=== PATIENT | female | born 1970 | race Caucasian/White ===

== ENCOUNTER 2016-07-31 18:37 | Emergency (ER) | payer MEDICAID ==
[~2016-07-31] VITALS: Ht 162.6 cm; Wt 84.0 kg
[~2016-07-31 18:37] MED LIST: ALPR0.5T3 PO; OMEP20TA PO; VENL37.595 PO; ZOLP10TA3 PO
[2016-07-31 18:39] VITALS: BP 125/86; PULSE 124; RESP 20; TEMP 97.5; O2SAT 98
[2016-07-31] MEDS ORDERED: DULO20 PO (18:47)
[2016-07-31] MEDS ORDERED: NEUR300C PO (19:19)
[2016-07-31] MEDS ORDERED: ACYC800T PO (19:19)
--- NOTE | 2016-07-31 19:23 | PD ---
HPI Chief Complaint: Skin Problem Time Seen by Provider: 19:19 Travel History International Travel<30 days: No Contact w/Intl Traveler<30days: No Traveled to known affect area: No History of Present Illness HPI 45-YEAR-OLD WHITE FEMALE PRESENTS TO EMERGENCY DEPARTMENT WITH A 2 DAY HISTORY OF blistering rash to the back of her right thigh. She has never had a rash at this time. She states that she has associated pain with this. She states it is a burning. She does not recall being sick prior to this. She does have some headache and general malaise. She denies any numbness, tingling or wheeze. No nausea vomiting. No history of shingles or herpes in the past. PFSH Past Medical History Narrative Medical Anxiety, depression, GERD, insomnia Arthritis: Yes Blood Disorders: No Anxiety: Yes Depression: Yes Cancer: No Cardiovascular Problems: No Diminished Hearing: No Gastrointestinal Disorders: No GERD: Yes Genitourinary: No Hepatitis: No Hiatal Hernia: No Hypertension: No Immune Disorder: No Implanted Vascular Access Dvce: No Insomnia: Yes Musculoskeletal: No Neurologic: Yes (HX MIGRAINES, HX 2 SEIZURES UNKNOWN ORIGIN 5 YR AGO) Psychiatric: Yes (HX OF PANIC ATTACKS) Reproductive: No Respiratory: No Seizures: Yes Thyroid Disease: Yes (HX OF HYPOTHYROID) Tetanus Vaccination: > 5 Years Influenza Vaccination: No ?: Not Ovarian Cysts: Yes (hx surgical removal) Tubal Ligation: Yes Past Surgical History Narrative Surgical Laparoscopic cyst removal from the ovary, C-sections 2, hysterectomy, right shoulder decompression Abdominal Surgery: No Body Medical Devices: NONE Cardiac Surgery: No Section: Yes Ear Surgery: No Endocrine Surgery: No Eye Surgery: No Genitourinary Surgery: No Gynecologic Surgery: Yes (2 C SECTION, TL, REMOVAL GROWTH FROM OVARY ) Hysterectomy: Yes (PARTIAL) Neurologic Surgery: No Oral Surgery: No Thoracic Surgery: No Other Surgery: Yes Social History Alcohol Use: Yes (COUPLE TIMES PER MONTH) Tobacco Use: No Substance Use: No Allergies-Medications (Allergen,Severity, Reaction): Coded Allergies: No Known Allergies (Verified , 07/31/16) Reported Meds & Prescriptions Reported Meds & Active Scripts Active Reported Cymbalta DR (Duloxetine HCl) 20 Mg Capdr 20 Mg PO DAILY Zolpidem (Zolpidem Tartrate) 10 Mg Tab 10 Mg PO HS PRN Alprazolam 0.5 Mg Tab 0.5 Mg PO Q8H PRN Omeprazole 20 Mg Tab 20 Mg PO DAILY Review of Systems Except as stated in HPI: all other systems reviewed are Neg Physical Exam Narrative GENERAL: Well-developed, well-nourished in no acute distress. Nontoxic appearing. The patient is examined with the female tech present HEAD: Normocephalic, atraumatic. EYES: Pupils equal round and reactive. Extraocular motions intact. No scleral icterus. No injection or drainage. ENT: TMs clear without erythema. The external auditory canals clear. Nose: clear . Posterior pharynx is pink and moist. No tonsillar edema or exudate. Uvula midline. Airway patent. NECK: Trachea midline.Supple, nontender, moves head freely. No central bony tenderness or spasm. CARDIOVASCULAR: Regular rate and rhythm without murmurs, gallops, or rubs. RESPIRATORY: Clear to auscultation. Breath sounds equal bilaterally. No wheezes , rales, or rhonchi. GASTROINTESTINAL: Abdomen soft, non-tender, nondistended. No hepato-splenomegaly , or palpable masses. No guarding. EXTREMITIES: No clubbing, cyanosis, or edema. No joint tenderness, effusion, or edema noted. BACK: Nontender without deformity or crepitance. No flank tenderness. Skin: Patient has a dermatomal vesicular rash to the posterior aspect of the right thigh from the buttocks down posteriorly to the knee. This is in a clustered group of vesicles which are intact. No surrounding infection. Data Data Last Documented VS Vital Signs Date Time Temp Pulse Resp B/P Pulse Ox O2 Delivery O2 Flow Rate FiO2 07/31/16 18:39 97.5 124 20 125/86 98 Room Air MDM Medical Decision Making Medical Screen Exam Complete: Yes Emergency Medical Condition: Yes Medical Record Reviewed: Yes Differential Diagnosis MDM: High Differential diagnoses: Abscess, folliculitis, cellulitis, lymphangitis, abrasion, contact dermatitis, herpes zoster Narrative Course This is herpes zoster Diagnosis Primary Impression: Herpes zoster Qualified Code: B02.8 - Herpes zoster with other complication Patient Instructions: General Instructions Departure Forms: Tests/Procedures, Work Release Special Instructions: No work 3 days. Additional Instructions: Rest. Elevation. keep clean and dry. Calamine lotion. Daily wound care with soap, water. Three Advil every 6 hours. Neurontin and acyclovir. Follow-up with a primary care doctor in one week. Return to the ER for any problems. Med/Other Pt SpecificInfo: Prescription(s) given Scripts Gabapentin (Neurontin)300 Mg Tao157 Mg PO TID #30 CAP Ref 0 Prov:Marty Ashraf MD 07/31/16 Acyclovir 800 Mg Qtd952 Mg PO 5 TIMES A DAY 10 Days Ref 0 Prov:Marty Ashraf MD 07/31/16 Disposition: 01 DISCHARGE HOME Condition: Stable Vinay Fong July 31, 2016 19:23
== END 2016-07-31 19:31 | disposition home or self-care (01) ==
LOC: NEPK 18:37
DX: B02.9 Zoster without complications (principal)
CPT/HCPCS: 99284

== ENCOUNTER 2016-09-12 09:32 | Emergency (ER) | payer MEDICAID ==
[~2016-09-12 09:32] MED LIST changes: +ACYC800T PO; +DULO20 PO; +NEUR300C PO; -VENL37.595 PO
[2016-09-12 09:36] VITALS: BP 160/95; PULSE 140; RESP 26; TEMP 97.8; O2SAT 100
[2016-09-12] MEDS ORDERED: ALPR1TAB3 PO (09:57)
[2016-09-12] MEDS ORDERED: CYMB60CA PO (09:57)
--- NOTE | 2016-09-12 10:13 | PD ---
HPI Chief Complaint: Respiratory Symptoms Time Seen by Provider: 09:58 Travel History International Travel<30 days: No Contact w/Intl Traveler<30days: No Traveled to known affect area: No History of Present Illness HPI The patient was seen and examined in the presence of the nurse. Patient complains of anxiety and panic. She is short of breath. She is hyperventilating and tearful. She is not having any chest pain. Severity is moderate. No alleviating factors. She reports compliance with her psychiatric medications. Duration one day. PFSH Past Medical History Arthritis: Yes Blood Disorders: No Anxiety: Yes Depression: Yes Cancer: No Cardiovascular Problems: No Diminished Hearing: No Gastrointestinal Disorders: No GERD: Yes Genitourinary: No Hepatitis: No Hiatal Hernia: No Hypertension: No Immune Disorder: No Implanted Vascular Access Dvce: No Insomnia: Yes Musculoskeletal: No Neurologic: Yes (HX MIGRAINES, HX 2 SEIZURES UNKNOWN ORIGIN 5 YR AGO) Psychiatric: Yes (HX OF PANIC ATTACKS) Reproductive: No Respiratory: No Seizures: Yes Thyroid Disease: Yes (HX OF HYPOTHYROID) ?: Not Ovarian Cysts: Yes (hx surgical removal) Tubal Ligation: Yes Past Surgical History Abdominal Surgery: No Body Medical Devices: NONE Cardiac Surgery: No Section: Yes Ear Surgery: No Endocrine Surgery: No Eye Surgery: No Genitourinary Surgery: No Gynecologic Surgery: Yes (2 C SECTION, TL, REMOVAL GROWTH FROM OVARY ) Hysterectomy: Yes (PARTIAL HYSTERECTOMY) Neurologic Surgery: No Oral Surgery: No Thoracic Surgery: No Other Surgery: Yes Social History Alcohol Use: Yes (COUPLE TIMES PER MONTH) Tobacco Use: No Substance Use: No Allergies-Medications (Allergen,Severity, Reaction): Coded Allergies: No Known Allergies (Verified , 09/12/16) Reported Meds & Prescriptions Reported Meds & Active Scripts Active Neurontin (Gabapentin) 300 Mg Cap 300 Mg PO TID Reported Cymbalta DR (Duloxetine HCl) 60 Mg Capdr 90 Mg PO DAILY Alprazolam 1 Mg Tab 1 Mg PO Q8H PRN Zolpidem (Zolpidem Tartrate) 10 Mg Tab 10 Mg PO HS PRN Omeprazole 20 Mg Tab 20 Mg PO DAILY Review of Systems General / Constitutional: No: Fever Eyes: No: Visual changes HENT: No: Headaches Cardiovascular: Positive: Tachycardia, No: Chest Pain or Discomfort Respiratory: Positive: Shortness of Breath Gastrointestinal: No: Abdominal Pain Genitourinary: No: Dysuria Musculoskeletal: No: Pain Skin: No Rash Neurologic: No: Weakness Psychiatric: Positive: Anxiety, No: Depression Endocrine: No: Polydipsia Hematologic/Lymphatic: No: Easy Bruising Physical Exam Narrative GENERAL: Well-nourished, well-developed patient who is hyperventilating and panicky and tearful . SKIN: Focused skin assessment reveals no rash and nodules. Skin is Warm and dry. HEAD: Atraumatic. Normocephalic. EYES: Pupils equal and round. No scleral icterus. No injection or drainage. ENT: No nasal bleeding or discharge. Mucous membranes pink and moist. NECK: Trachea midline. No JVD. CARDIOVASCULAR: Regular rate and rhythm. No murmur appreciated. RESPIRATORY: No accessory muscle use. Clear to auscultation. Breath sounds equal bilaterally. GASTROINTESTINAL: Abdomen soft, non-tender, nondistended. Hepatic and splenic margins not palpable. MUSCULOSKELETAL: No obvious deformities. No clubbing. No cyanosis. No edema. NEUROLOGICAL: Awake and alert. No obvious cranial nerve deficits. Motor grossly within normal limits. Normal speech. PSYCHIATRIC: Anxious mood and affect; insight and judgment normal. Data Data Last Documented VS Vital Signs Date Time Temp Pulse Resp B/P Pulse Ox O2 Delivery O2 Flow Rate FiO2 09/12/16 11:02 84 17 117/78 97 Room Air 09/12/16 09:36 97.8 Orders Iv Access Insert/Monitor (09/12/16 10:05) Complete Blood Count With Diff (09/12/16 10:05) Basic Metabolic Panel (Bmp) (09/12/16 10:05) Chest, Single Ap (09/12/16 ) Conductor Orchestra / Telemetry PRERNA.Q8H (09/12/16 10:05) Lorazepam Inj (Ativan Inj) (09/12/16 10:15) Labs Laboratory Tests Test 09/12/16 09:55 White Blood Count 11.7 TH/MM3 Red Blood Count 4.44 MIL/MM3 Hemoglobin 12.3 GM/DL Hematocrit 37.5 % Mean Corpuscular Volume 84.4 FL Mean Corpuscular Hemoglobin 27.6 PG Mean Corpuscular Hemoglobin 32.7 % Concent Red Cell Distribution Width 17.5 % Platelet Count 283 TH/MM3 Mean Platelet Volume 9.1 FL Neutrophils (%) (Auto) 77.7 % Lymphocytes (%) (Auto) 13.1 % Monocytes (%) (Auto) 7.8 % Eosinophils (%) (Auto) 1.1 % Basophils (%) (Auto) 0.3 % Neutrophils # (Auto) 9.1 TH/MM3 Lymphocytes # (Auto) 1.5 TH/MM3 Monocytes # (Auto) 0.9 TH/MM3 Eosinophils # (Auto) 0.1 TH/MM3 Basophils # (Auto) 0.0 TH/MM3 CBC Comment DIFF FINAL Differential Comment Sodium Level 138 MEQ/L Potassium Level 3.7 MEQ/L Chloride Level 105 MEQ/L Carbon Dioxide Level 27.2 MEQ/L Anion Gap 6 MEQ/L Blood Urea Nitrogen 10 MG/DL Creatinine 0.76 MG/DL Estimat Glomerular Filtration 83 ML/MIN Rate Random Glucose 106 MG/DL Calcium Level 8.4 MG/DL MDM Medical Decision Making Medical Screen Exam Complete: Yes Emergency Medical Condition: Yes Medical Record Reviewed: Yes Differential Diagnosis Anxiety, panic, pneumonia, pneumothorax Narrative Course I have reviewed the patient's electronic medical record. IV placed CBC is normal Metabolic profile normal I reviewed her chest x-ray which is normal I gave her 1 mg IV Ativan On recheck she feels much better and is calm and she is no longer tachycardic Diagnosis Primary Impression: Shortness of breath at rest Additional Impression: Panic attack Additional Instructions: The patient was advised to follow up with their physician and return if they worsen. Med/Other Pt SpecificInfo: Other Disposition: 01 DISCHARGE HOME Condition: Stable Frandy Hines MD Sep 12, 2016 10:13
[2016-09-12] MEDS ORDERED: LORazepam 2 MG/ML VIAL IV PUSH ONE (10:15)
[2016-09-12 10:25] LABS: AUTOMATED NEUTROPHIL # 9.1 TH/MM3 (1.8-7.7); BASOPHIL % 0.3 % (0.0-2.0); EOSINOPHIL # 0.1 TH/MM3 (0-0.4); EOSINOPHIL % 1.1 % (0.0-4.0); HEMATOCRIT 37.5 % (35.0-46.0); HEMO FLAGS DIFF FINAL; LYMPH % 13.1 % (9.0-44.0); LYMPHOCYTE # 1.5 TH/MM3 (1.0-4.8); MEAN CELL VOLUME 84.4 FL (80.0-100.0); MEAN CORPUSCULAR HEMOGLOBIN 27.6 PG (27.0-34.0); MEAN CORPUSCULAR HGB CONC 32.7 % (32.0-36.0); MONO % 7.8 % (0.0-8.0); NEUT % 77.7 % (16.0-70.0); PLATELET COUNT 283 TH/MM3 (150-450); RED BLOOD COUNT 4.44 MIL/MM3 (4.00-5.30); RED CELL DISTRIBUTION WIDTH 17.5 % (11.6-17.2); WHITE BLOOD COUNT 11.7 TH/MM3 (4.0-11.0)
[2016-09-12 10:41] LABS: BICARBONATE 27.2 MEQ/L (21.0-32.0); POTASSIUM 3.7 MEQ/L (3.5-5.1)
--- NOTE | 2016-09-12 10:42 | RADRPT ---
EXAM DATE/TIME: 09/12/2016 10:20 [facility] COMPARISON: No previous studies available for comparison. INDICATIONS : Short of breath. Elevated heart rate. Possible anxiety attack. MEDICAL HISTORY : Hypothyroidism. Gastroesophageal reflux disease. Arthritis. Migraines. Seizures. Constipation. Ov octavia cyst. Panic attacks. SURGICAL HISTORY : section. Tubal ligation. Hysterectomy. Ovarian cyst removal. Right shoulder surgery. ENCOUNTER: Initial ACUITY: 1 day PAIN SCORE: 0/10 LOCATION: Bilateral chest FINDINGS: The lungs are clear without infiltrate, nodule, or mass. There is no appreciable pleural effusion fo r technique. Heart and mediastinum are unremarkable. CONCLUSION: No acute cardiopulmonary disease. Guillermina Shaw MD on September 12, 2016 at 10:39 Board Certified Radiologist. This report was verified electronically.
[2016-09-12 11:02] VITALS: BP 117/78; PULSE 84; RESP 17; O2SAT 97
== END 2016-09-12 13:45 | disposition home or self-care (01) ==
LOC: NEPE 09:32
DX: F41.0 Panic disorder [episodic paroxysmal anxiety] (principal)
CPT/HCPCS: 71010; 80048; 85025; 96374; 99284; J2060

== ENCOUNTER 2016-10-09 10:09 | Emergency (ER) | payer OTHER, MEDICAID ==
[~2016-10-09] VITALS: Ht 162.6 cm; Wt 85.0 kg
[~2016-10-09 10:09] MED LIST changes: -ACYC800T PO; -ALPR0.5T3 PO; +ALPR1TAB3 PO; +CYMB60CA PO; -DULO20 PO
[2016-10-09 10:12] VITALS: BP 132/92; PULSE 131; RESP 22; TEMP 98.4
[2016-10-09] MEDS ORDERED: LORazepam 2 MG/ML VIAL IV PUSH ONE (10:30)
[2016-10-09 10:35] VITALS: PULSE 108; RESP 18; O2SAT 99
[2016-10-09 11:12] LABS: AUTOMATED NEUTROPHIL # 5.3 TH/MM3 (1.8-7.7); BASOPHIL % 0.5 % (0.0-2.0); EOSINOPHIL # 0.1 TH/MM3 (0-0.4); EOSINOPHIL % 1.4 % (0.0-4.0); HEMATOCRIT 35.2 % (35.0-46.0); HEMO FLAGS DIFF FINAL; LYMPHOCYTE # 1.3 TH/MM3 (1.0-4.8); MEAN CELL VOLUME 86.6 FL (80.0-100.0); MEAN CORPUSCULAR HEMOGLOBIN 28.3 PG (27.0-34.0); MEAN CORPUSCULAR HGB CONC 32.7 % (32.0-36.0); MONO % 8.4 % (0.0-8.0); NEUT % 71.7 % (16.0-70.0); PLATELET COUNT 296 TH/MM3 (150-450); RED BLOOD COUNT 4.06 MIL/MM3 (4.00-5.30); RED CELL DISTRIBUTION WIDTH 16.4 % (11.6-17.2); WHITE BLOOD COUNT 7.4 TH/MM3 (4.0-11.0)
--- NOTE | 2016-10-09 11:17 | RADRPT ---
EXAM DATE/TIME: 10/09/2016 10:33 [facility] COMPARISON: CHEST SINGLE AP, September 12, 2016, 10:20. INDICATIONS : Short of breath since this morning when patient woke up. MEDICAL HISTORY : None. SURGICAL HISTORY : section. Ovarian cyst removed. ENCOUNTER: Initial ACUITY: 1 day PAIN SCORE: 0/10 LOCATION: Bilateral chest FINDINGS: There is minimal sub-segmental level atelectasis in the left midlung. Lungs otherwise clear. No effus ion suspected. Cardiac contours are satisfactory. CONCLUSION: Minimal left lung atelectasis Flex Blevins MD on October 09, 2016 at 11:15 Board Certified Radiologist. This report was verified electronically.
--- NOTE | 2016-10-09 11:29 | PD ---
HPI Chief Complaint: Anxiety Time Seen by Provider: 10:25 Travel History International Travel<30 days: No Contact w/Intl Traveler<30days: No Traveled to known affect area: No History of Present Illness HPI This is a 45-year-old female with no significant past medical history, who presents today with complaints of shortness of breath, shakiness, palpitations. The patient states that she was on her way to work when she started feeling anxious. She states she's allow life stressors including work. She was seen here previously for similar episode and was told it was likely anxiety. She has no history of estrogen use, she is not a smoker, she has had no long car or plane rides, she has no calf tenderness or swelling. She denies any chest pain , chest pressure. There are no other complaints time my examination. PFSH Past Medical History Arthritis: Yes Blood Disorders: No Anxiety: Yes Depression: Yes Cancer: No Cardiovascular Problems: No Diminished Hearing: No Gastrointestinal Disorders: No GERD: Yes Genitourinary: No Hepatitis: No Hiatal Hernia: No Hypertension: No Immune Disorder: No Implanted Vascular Access Dvce: No Insomnia: Yes Musculoskeletal: No Neurologic: Yes (HX MIGRAINES, HX 2 SEIZURES UNKNOWN ORIGIN 5 YR AGO) Psychiatric: Yes (HX OF PANIC ATTACKS) Reproductive: No Respiratory: No Seizures: Yes Thyroid Disease: Yes (HX OF HYPOTHYROID) Tetanus Vaccination: > 5 Years Influenza Vaccination: Yes ?: Not Ovarian Cysts: Yes (hx surgical removal) Tubal Ligation: Yes Past Surgical History Abdominal Surgery: No Body Medical Devices: NONE Cardiac Surgery: No Section: Yes Ear Surgery: No Endocrine Surgery: No Eye Surgery: No Genitourinary Surgery: No Gynecologic Surgery: Yes (2 C SECTION, TL, REMOVAL GROWTH FROM OVARY ) Hysterectomy: Yes (PARTIAL HYSTERECTOMY) Neurologic Surgery: No Oral Surgery: No Thoracic Surgery: No Other Surgery: Yes Social History Alcohol Use: Yes (COUPLE TIMES PER MONTH) Tobacco Use: No (quit 20 years ago) Substance Use: No (pt denies ) Allergies-Medications (Allergen,Severity, Reaction): Coded Allergies: No Known Allergies (Verified , 10/09/16) Reported Meds & Prescriptions Reported Meds & Active Scripts Active Vistaril (Hydroxyzine Pamoate) 25 Mg Cap 25 Mg PO TID PRN Neurontin (Gabapentin) 300 Mg Cap 300 Mg PO TID Reported Cymbalta DR (Duloxetine HCl) 60 Mg Capdr 90 Mg PO DAILY Alprazolam 1 Mg Tab 1 Mg PO Q8H PRN Zolpidem (Zolpidem Tartrate) 10 Mg Tab 10 Mg PO HS PRN Omeprazole 20 Mg Tab 20 Mg PO DAILY Review of Systems Except as stated in HPI: all other systems reviewed are Neg General / Constitutional: No: Fever, Chills HENT: No: Headaches, Lightheadedness Cardiovascular: Positive: Palpitations, No: Chest Pain or Discomfort, Irregular Rhythm Respiratory: Positive: Shortness of Breath, No: Cough Gastrointestinal: No: Nausea, Vomiting, Abdominal Pain Genitourinary: No: Frequency, Dysuria Musculoskeletal: No: Weakness, Edema, Pain Neurologic: Positive: Other, No: Weakness, Dizziness, Headache (shakiness), Incontinence Psychiatric: Positive: Anxiety, No: Depression, Suicidal Ideations, Disorder of Thought Physical Exam Narrative GENERAL: Well-developed well-nourished female in no acute respiratory distress. She appeared anxious and jittery when I entered the room. SKIN: Focused skin assessment warm/dry. HEAD: Atraumatic. Normocephalic. EYES: No scleral icterus. No injection or drainage. ENT: No nasal bleeding or discharge. Mucous membranes pink and moist. NECK: Trachea midline. No JVD. Supple. CARDIOVASCULAR: Tachycardic without murmurs. Rate was 105. No murmur appreciated. RESPIRATORY: No accessory muscle use. Clear to auscultation. Breath sounds equal bilaterally. GASTROINTESTINAL: Abdomen soft, non-tender, nondistended. Hepatic and splenic margins not palpable. MUSCULOSKELETAL: No obvious deformities. No clubbing. No cyanosis. No edema. NEUROLOGICAL: Awake and alert. No obvious cranial nerve deficits. Motor grossly within normal limits. Normal speech. PSYCHIATRIC: Anxious appearing. Data Data Last Documented VS Vital Signs Date Time Temp Pulse Resp B/P Pulse Ox O2 Delivery O2 Flow Rate FiO2 10/09/16 13:58 97.9 93 16 108/60 99 Room Air Orders Electrocardiogram (10/09/16 10:30) Complete Blood Count With Diff (10/09/16 10:30) Basic Metabolic Panel (Bmp) (10/09/16 10:30) Chest, Single Ap (10/09/16 10:30) Iv Access Insert/Monitor (10/09/16 10:30) Ecg Monitoring (10/09/16 10:30) Oximetry (10/09/16 10:30) Ed Urine Pregnancytest Poc (10/09/16 10:30) Lorazepam Inj (Ativan Inj) (10/09/16 10:30) Sodium Chlor 0.9% 1000 Ml Inj (Ns 1000 M (10/09/16 13:45) Labs Laboratory Tests Test 10/09/16 10:44 White Blood Count 7.4 TH/MM3 Red Blood Count 4.06 MIL/MM3 Hemoglobin 11.5 GM/DL Hematocrit 35.2 % Mean Corpuscular Volume 86.6 FL Mean Corpuscular Hemoglobin 28.3 PG Mean Corpuscular Hemoglobin 32.7 % Concent Red Cell Distribution Width 16.4 % Platelet Count 296 TH/MM3 Mean Platelet Volume 8.8 FL Neutrophils (%) (Auto) 71.7 % Lymphocytes (%) (Auto) 18.0 % Monocytes (%) (Auto) 8.4 % Eosinophils (%) (Auto) 1.4 % Basophils (%) (Auto) 0.5 % Neutrophils # (Auto) 5.3 TH/MM3 Lymphocytes # (Auto) 1.3 TH/MM3 Monocytes # (Auto) 0.6 TH/MM3 Eosinophils # (Auto) 0.1 TH/MM3 Basophils # (Auto) 0.0 TH/MM3 CBC Comment DIFF FINAL Differential Comment Sodium Level 138 MEQ/L Potassium Level 5.2 MEQ/L Chloride Level 107 MEQ/L Carbon Dioxide Level 24.1 MEQ/L Anion Gap 7 MEQ/L Blood Urea Nitrogen 14 MG/DL Creatinine 0.83 MG/DL Estimat Glomerular Filtration 75 ML/MIN Rate Random Glucose 110 MG/DL Calcium Level 8.1 MG/DL [facility] Medical Decision Making Medical Screen Exam Complete: Yes Emergency Medical Condition: Yes Differential Diagnosis Anxiety versus metabolic derangement versus PE Narrative Course 45-year-old female presents today with complaints of palpitations, shortness of breath, shakiness. The patient was seen a month ago for the same thing. At that time she had another negative workup. Cardiac enzymes and EKG are within normal limits. Her potassium was 5.2. She's been given 1 L of IV fluid. She' ll be discharged and told to follow up with Giuliano Rivas for outpatient counseling. She will be given a prescription for Vistaril. Diagnosis Primary Impression: Shortness of breath at rest Additional Impression: Panic attack Referrals: [facility] Additional Instructions: Drink more water. Follow up with Giuliano Rivas for outpatient counseling. Med/Other Pt SpecificInfo: Prescription(s) given Scripts Hydroxyzine Pamoate (Vistaril)25 Mg Cap25 Mg PO TID PRN (ANXIETY) #30 CAP Ref 0 Prov:Hilario Desai MD 10/09/16 Disposition: 01 DISCHARGE HOME Condition: Stable Hilario Desai MD Oct 09, 2016 11:29
[2016-10-09 11:32] LABS: BICARBONATE 24.1 MEQ/L (21.0-32.0)
[2016-10-09 11:33] LABS: POTASSIUM 5.2 MEQ/L (3.5-5.1)
[2016-10-09 11:49] VITALS: BP 124/83; PULSE 92; RESP 17; TEMP 97.8; O2SAT 98
[2016-10-09] MEDS ORDERED: SODIUM CHLOR 0.9% 1000 ML INJ 1,000 ML IV ONE (13:45)
[2016-10-09 13:58] VITALS: BP 108/60; PULSE 93; RESP 16; TEMP 97.9; O2SAT 99
[2016-10-09] MEDS ORDERED: VIST25CA PO (15:21)
[2016-10-09 15:38] VITALS: BP 110/69; TEMP 97.9
--- NOTE | 2016-10-09 16:30 | EKG ---
Date Performed: 10/09/2016 Time Performed: 10:43:17 PTAGE: 45 years EKG: SINUS TACHYCARDIA ABNORMAL RHYTHM ECG PREVIOUS TRACING : 04/29/2014 11.48 Since previous tracing, no significant change noted DOCTOR: Vitaliy Gomez Interpretating Date/Time 10/09/2016 16:28:53
== END 2016-10-09 15:38 | disposition home or self-care (01) ==
LOC: NEPC 10:09
DX: F41.0 Panic disorder [episodic paroxysmal anxiety] (principal); K21.9 Gastro-esophageal reflux disease without esophagitis; M19.90 Unspecified osteoarthritis, unspecified site
CPT/HCPCS: 71010; 80048; 84703; 85025; 93005; 96361; 96374; 99285; J2060; J7030

== ENCOUNTER 2017-03-12 13:12 | Emergency (ER) | payer MEDICAID, OTHER ==
[~2017-03-12 13:12] MED LIST changes: -OMEP20TA PO; +OMEP20TA93 PO; +VIST25CA PO
[2017-03-12 13:14] VITALS: BP 143/83; PULSE 132; RESP 20; TEMP 97.9; O2SAT 97
--- NOTE | 2017-03-12 14:14 | PD ---
HPI Chief Complaint: Anxiety Time Seen by Provider: 13:35 Travel History International Travel<30 days: No Contact w/Intl Traveler<30days: No Traveled to known affect area: No History of Present Illness HPI Patient is a 46-year-old female presenting to emergency for evaluation of anxiety attacks. Pt presents with palpitations and SOB. Her symptoms Started just prior to arrival. Pt has a hx of anxiety and panic attacks. Patient denies any chest pain, nausea, vomiting, fever, chills, headache. She denies any suicidal ideations, hallucinations. Alleviating or exacerbating factors. Patient denies any recent stressors. Symptoms started abruptly. PFSH Past Medical History Arthritis: Yes Blood Disorders: No Anxiety: Yes Depression: Yes Cancer: No Cardiovascular Problems: No Diminished Hearing: No Gastrointestinal Disorders: No GERD: Yes Genitourinary: No Hepatitis: No Hiatal Hernia: No Hypertension: No Immune Disorder: No Implanted Vascular Access Dvce: No Insomnia: Yes Musculoskeletal: No Neurologic: Yes (HX MIGRAINES, HX 2 SEIZURES UNKNOWN ORIGIN 5 YR AGO) Psychiatric: Yes (HX OF PANIC ATTACKS) Reproductive: No Respiratory: No Seizures: Yes Thyroid Disease: Yes (HX OF HYPOTHYROID) ?: Not Ovarian Cysts: Yes (hx surgical removal) Tubal Ligation: Yes Past Surgical History Abdominal Surgery: No Body Medical Devices: NONE Cardiac Surgery: No Section: Yes Ear Surgery: No Endocrine Surgery: No Eye Surgery: No Genitourinary Surgery: No Gynecologic Surgery: Yes (2 C SECTION, TL, REMOVAL GROWTH FROM OVARY ) Hysterectomy: Yes (partial) Neurologic Surgery: No Oral Surgery: No Thoracic Surgery: No Other Surgery: Yes Social History Alcohol Use: Yes (COUPLE TIMES PER MONTH) Tobacco Use: No (quit 20 years ago) Substance Use: No (pt denies ) Allergies-Medications (Allergen,Severity, Reaction): Coded Allergies: No Known Allergies (Verified , 10/09/16) Reported Meds & Prescriptions Reported Meds & Active Scripts Active Vistaril (Hydroxyzine Pamoate) 25 Mg Cap 25 Mg PO TID PRN Neurontin (Gabapentin) 300 Mg Cap 300 Mg PO TID Reported Cymbalta DR (Duloxetine HCl) 60 Mg Capdr 90 Mg PO DAILY Alprazolam 1 Mg Tab 1 Mg PO Q8H PRN Zolpidem (Zolpidem Tartrate) 10 Mg Tab 10 Mg PO HS PRN Omeprazole 20 Mg Tab 20 Mg PO DAILY Review of Systems Except as stated in HPI: all other systems reviewed are Neg Respiratory: Positive: Shortness of Breath Psychiatric: Positive: Anxiety Physical Exam Narrative GENERAL: Well-developed, well-nourished, alert female. Appears anxious, in no acute distress. SKIN: Warm and dry. HEAD: Normocephalic. EYES: No scleral icterus. No injection or drainage. NECK: Supple, trachea midline. No JVD or lymphadenopathy. CARDIOVASCULAR: Tachycardic RESPIRATORY: No increased work of breathing, No accessory muscle use. GASTROINTESTINAL: Abdomen soft, non-tender, nondistended. MUSCULOSKELETAL: No cyanosis, or edema. Data Data Last Documented VS Vital Signs Date Time Temp Pulse Resp B/P (MAP) Pulse Ox O2 Delivery O2 Flow Rate FiO2 03/12/17 14:11 03/12/17 13:14 97.9 132 20 97 Orders Orders Ckmb (Isoenzyme) Profile (03/12/17 13:37) Complete Blood Count With Diff (03/12/17 13:37) Comprehensive Metabolic Panel (03/12/17 13:37) Troponin I (03/12/17 13:37) Thyroid Stimulating Hormone (03/12/17 13:37) Free Thyroxine (T4) (03/12/17 13:37) MDM Medical Decision Making Medical Screen Exam Complete: Yes Emergency Medical Condition: Yes Interpretation(s) Vital Signs Date Time Temp Pulse Resp B/P (MAP) Pulse Ox O2 Delivery O2 Flow Rate FiO2 03/12/17 14:11 03/12/17 13:14 97.9 132 20 143/83 (103) 97 Differential Diagnosis Anxiety versus metabolic abnormality versus thyroid disorder versus other Narrative Course Patient is a 46-year-old female that presented to emergency room evaluation of anxiety and a panic attack, her symptoms started just prior to arrival. On arrival patient is tachycardic, she appears very anxious. She denies any suicidal ideations or hallucinations. She further denied any drug use. Protocols initiated in triage, patient is awaiting bed placement. Patient was called for bed placement, she was noted to be found in the emergency department, she was called several times before being departed as left AGAINST MEDICAL ADVICE. Diagnosis Primary Impression: Left against medical advice Sophia Estrada Mar 12, 2017 14:14
== END 2017-03-12 14:36 | disposition left against medical advice (07) ==
LOC: NED 13:12
DX: F41.9 Anxiety disorder, unspecified (principal); R06.02 Shortness of breath; M19.90 Unspecified osteoarthritis, unspecified site; F32.9 Major depressive disorder, single episode, unspecified; K21.9 Gastro-esophageal reflux disease without esophagitis; G47.00 Insomnia, unspecified; R56.9 Unspecified convulsions; E03.9 Hypothyroidism, unspecified; F41.0 Panic disorder [episodic paroxysmal anxiety]
CPT/HCPCS: 99281